=== PATIENT | female | born 1960 | race Caucasian/White ===

== ENCOUNTER 2016-10-23 12:20 | Emergency (ER) | payer OTHER ==
[~2016-10-23] VITALS: Ht 152.4 cm; Wt 132.0 kg
[~2016-10-23 12:20] MED LIST: FLUO20TA27 PO; HYDR25TA6 PO; TRAZ50TA18 PO
[2016-10-23 12:22] VITALS: Ht 152.4 cm; Wt 132.0 kg
[2016-10-23] MEDS ORDERED: KETOROLAC 30 MG INJ IM STA (13:10)
--- NOTE | 2016-10-23 13:48 | RADRPT ---
PROCEDURE: XR left shoulder. CLINICAL INDICATION: Pain TECHNIQUE: Axillary, Internal and external rotation views of the left shoulder were performed. COMPARISON: None. FINDINGS: There are mild degenerative changes involving the acromioclavicular joint with mild joint space narr owing and subchondral sclerosis. There is normal osseous mineralization and alignment. There is a focal linear calcification adjacent to the superior outer aspect of the humeral head. A s mall avulsion fracture is not excluded. RPTAT: AA IMPRESSION: Mild degenerative changes of the acromioclavicular joint. Focal linear calcification near the superior outer aspect of the right humeral head. This may repre sent an focal area of calcific tendonitis. However a small nondisplaced fracture is not excluded. Follow-up CT is recommended. .Cash Prakash MD, Date Time Electronically viewed and signed by .Cash Prakash MD, on 10/23/2016 13:48 .S/
[2016-10-23] MEDS ORDERED: BUPIVACAINE 0.5% 30 ML VIAL INJ ONE (14:30)
[2016-10-23] MEDS ORDERED: METHYLPREDNISOLONE 40 MG INJ IM ONE (14:30)
[2016-10-23] MEDS ORDERED: NAPR-260 PO (14:56)
--- NOTE | 2016-10-23 15:02 | ERD ---
ER Documentation Chief Complaint Date/Time DATE: 10/23/16 TIME: 14:59 Chief Complaint Complains of right shoulder pain since last night HPI This 56-year-old female who was going down some stairs holding onto a guardrail when she jammed her right shoulder. This is's onset last night. She is complaining pain in the posterior right shoulder. No dislocation there is pain with range of motion. No fall. Pain is sharp worse with movement better with rest. No pain down the arm or radicular pain no pain in the neck or head ROS All systems reviewed and are negative except as per history of present illness. Medications Home Meds Active Scripts Naproxen* (Naprosyn*) 500 Mg Tablet, 500 MG PO BID Y for PAIN AND/OR INFLAMMATION, #30 TAB Prov:ROSSY CARSON PA-C 10/23/16 Reported Medications Trazodone Hcl* (Trazodone Hcl*) 50 Mg Tablet, PO HS PRN 03/11/11 Hydrochlorothiazide (Hydrochlorothiazide) 25 Mg Tablet, PO DAILY 03/11/11 Fluoxetine Hcl (Fluoxetine Hcl) 20 Mg Tablet, PO HS 03/11/11 Allergies Allergies: Coded Allergies: No Known Drug Allergies (Verified Allergy, Unknown, 10/23/16) PMhx/Soc History of Surgery: Yes (GALLBLADDER) Anesthesia Reaction: No Hx Neurological Disorder: No Hx Respiratory Disorders: No Hx Cardiac Disorders: Yes (HTN) Hx Psychiatric Problems: Yes (DEPRESSION) Hx Miscellaneous Medical Probl: No Hx Alcohol Use: No Hx Substance Use: No Hx Tobacco Use: Yes Smoking Status: Never smoker FmHx Family History: No coronary disease Physical Exam Vitals Vital Signs Date Time Temp Pulse Resp B/P Pulse Ox O2 Delivery O2 Flow Rate FiO2 10/23/16 12:22 97.8 82 20 141/82 98 Physical Exam Const: Well-developed, well-nourished Head: Atraumatic, normocephalic Eyes: Normal Conjunctiva, PERRLA, EOMI, normal sclera, no nystagmus ENT: Normal External Ears, Nose and Mouth, moist mucus membranes. Neck: Full range of motion. No meningismus, no lymphadenopathy. Resp: Clear to auscultation bilaterally, no wheezing, rhonchi, rales Cardio: Regular rate and rhythm, no murmurs, S1 S2 present Abd: Soft, non tender x 4, non distended. Normal bowel sounds, no guarding or rebound, no pulsitile abdominal masses or bruits Skin: No petechiae or rashes, no ecchymosis , no maculopapular rash Back: No midline or flank tenderness Ext: No cyanosis, or edema, FROM x 4, normal inspection, neurovascularly intact x 4, decreased range of motion to right shoulder due to pain his pain at the posterior aspect of the shoulder at the AC joint also. Limited abduction and flexion Neur: Awake and alert, STR 5/5 x 4, sensation intact x 4, no focal findings, cerebellum intact Psych: Normal Mood and Affect Results 24 hrs Current Medications Medications (Trade) Dose Ordered Sig/Fabricio Route PRN Reason Start Time Stop Time Status Last Admin Dose Admin Ketorolac Tromethamine (Toradol) 30 mg ONCE STAT IM 10/23/16 13:10 10/23/16 13:13 DC 10/23/16 13:22 Methylprednisolone Sodium Succinate (Solu-Medrol) 40 mg ONCE ONCE IM 10/23/16 14:30 10/23/16 14:31 DC Bupivacaine HCl (Marcaine 0.5%) 4 ml ONCE ONCE INJ 10/23/16 14:30 10/23/16 14:31 DC Procedures/MDM PROCEDURE: XR left shoulder. CLINICAL INDICATION: Pain TECHNIQUE: Axillary, Internal and external rotation views of the left shoulder were performed. COMPARISON: None. FINDINGS: There are mild degenerative changes involving the acromioclavicular joint with mild joint space narrowing and subchondral sclerosis. There is normal osseous mineralization and alignment. There is a focal linear calcification adjacent to the superior outer aspect of the humeral head. A small avulsion fracture is not excluded. RPTAT: AA IMPRESSION: Mild degenerative changes of the acromioclavicular joint. Focal linear calcification near the superior outer aspect of the right humeral head. This may represent an focal area of calcific tendonitis. However a small nondisplaced fracture is not excluded. Follow-up CT is recommended. .Cash Prakash MD, MD Date Time Electronically viewed and signed by .Cash Prakash MD, on 10/23/2016 13: 48 .S/ CC: ROSSY CARSON PA-C Procedure: By me: Right shoulder injection Skin was prepped by me using Betadine and aseptic technique An injection into the right shoulder with a 27-gauge 1-1/2 inch needle with 1 cc of Solu-Medrol 40 mg per ml with 3 mL's of bupivacaine 0.5% Injected into the right shoulder joint. No blood upon withdraw of syringe once in the joint space Patient tolerated the procedure well Departure Diagnosis: Primary Impression: Shoulder pain Laterality: right Chronicity: acute Qualified Code: M25.511 - Acute pain of right shoulder Condition: Stable Patient Instructions: Shoulder Pain (Uncertain Cause) Referrals: [facility] Urgent Care 7 a.m.- 11 p.m. Every Day of the Week NO APPOINTMENT OR AUTHORIZATION NEEDED [facility] Hours: Mon-Fri 9:00 AM - 5:00 PM Additional Instructions: Llame al doctor JAZ y anastacia gopal GRISEL PARA DENTRO DE 1-2 SALINAS.Dgale a la secretaria que nosotros le instruimos hacer esta grisel.Avise o llame si william condicin se empeora antes de la grisel. Regresa aqui si peor o no mejor. ORQUIDEA GLORIA DO Oct 23, 2016 15:02
[2016-10-23 15:07] VITALS: BP 133/82; PULSE 79; RESP 18; TEMP 98.4
== END 2016-10-23 15:08 | disposition home or self-care (01) ==
LOC: FTE 12:20
DX: M25.511 Pain in right shoulder (principal); I10 Essential (primary) hypertension
CPT/HCPCS: 73030; 96372; J1885; J2920; Z7502; Z7610

== ENCOUNTER 2017-06-15 06:44 | Day surgery (SDC) | payer OTHER ==
[~2017-06-15] VITALS: Ht 157.5 cm; Wt 136.0 kg
[2017-06-15] VITALS (22 sets, daily range): BP systolic 104–181; BP diastolic 55–84; PULSE 58–83; RESP 12–23; Ht 157.5 cm; Wt 136.0 kg
[~2017-06-15 06:44] MED LIST changes: +NAPR-260 PO
[2017-06-15] MEDS ORDERED: ASPI-664 PO (07:13)
[2017-06-15] MEDS ORDERED: TOPI25CA PO (07:14)
[2017-06-15] MEDS ORDERED: METO-335 PO (07:15)
[2017-06-15] MEDS ORDERED: NIT4 SL (07:15)
[2017-06-15] MEDS ORDERED: LEVO50TA71 PO (07:15)
[2017-06-15 07:35] LABS: BASOPHILS % 0.7 % (0.0-2.0); EOSINOPHILS # 0.1 10^3/ul (0.0-0.5); EOSINOPHILS % 2.2 % (0.0-7.0); HEMATOCRIT 41.5 % (37.0-47.0); HEMOGLOBIN 13.8 g/dl (12.0-16.0); LYMPHOCYTES # 1.4 10^3/ul (0.8-2.9); LYMPHOCYTES % 30.5 % (15.0-51.0); MEAN CORPUSCULAR HEMOGLOBIN 30.8 pg (29.0-33.0); MEAN CORPUSCULAR HGB CONC 33.3 g/dl (32.0-37.0); MEAN CORPUSCULAR VOLUME 92.6 fl (82.0-101.0); MEAN PLATELET VOLUME 10.3 fl (7.4-10.4); MONOCYTE # 0.4 10^3/ul (0.3-0.9); MONOCYTES % 9.2 % (0.0-11.0); NEUTROPHIL # 2.6 10^3/ul (1.6-7.5); NEUTROPHILS % 57.2 % (39.0-77.0); PLATELET COUNT 299 10^3/UL (140-415); RED BLOOD COUNT 4.48 10^6/ul (4.20-5.40); WHITE BLOOD COUNT 4.6 10^3/ul (4.8-10.8)
[2017-06-15 07:46] LABS: INR 1.02; PROTIME 13.4 Sec (12.2-14.2)
[2017-06-15 07:47] LABS: PARTIAL THROMBOPLASTIN TIME 33.8 Sec (25.0-35.0)
[2017-06-15 07:49] LABS: CHOL/HDL RATIO 3.6 RATIO
[2017-06-15 07:53] LABS: CALCIUM 9.5 mg/dl (8.4-10.2); CREATININE 0.79 mg/dl (0.44-1.00); POTASSIUM 4.2 mmol/L (3.5-5.1)
--- NOTE | 2017-06-15 07:56 | RADRPT ---
PROCEDURE: XR Chest. TECHNIQUE: Single frontal radiograph. CLINICAL INDICATION: Preoperative. COMPARISON: None. FINDINGS: Bibasilar atelectasis without focal consolidation, pneumothorax, or pleural effusions. The cardiac s ilhouette is likely magnified in the context of low lung volumes. IMPRESSION: No acute cardiopulmonary process. RPTAT: EE .James Diez MD, MD Date Time Electronically viewed and signed by .James Diez MD, MD on 06/15/2017 08:01 .C/
[2017-06-15] MEDS ORDERED: DIPHENHYDRAMINE 50 MG CAP PO ONE (08:00)
[2017-06-15] MEDS ORDERED: FAMOTIDINE 20 MG TAB PO ONE (08:00)
[2017-06-15] MEDS ORDERED: SOD CHLORIDE 0.45% 1,000 ML IV ONE (08:00)
[2017-06-15] MEDS ORDERED: DIAZEPAM 5 MG TAB PO ONE (08:00)
[2017-06-15] MEDS ORDERED: HEPARIN 1000 UNITS/ML 10 ML INJ ONE (09:45)
[2017-06-15] MEDS ORDERED: MIDAZOLAM 1 MG/ML 2 ML INJ ONE (09:45)
[2017-06-15] MEDS ORDERED: FENTAnyl 50 MCG/ML VIAL ONE (09:45)
[2017-06-15] MEDS ORDERED: IODIXANOL LOCM 100 ML BTL ONE (09:45)
[2017-06-15] MEDS ORDERED: VERAPAMIL 5 MG INJ ONE (09:45)
[2017-06-15] MEDS ORDERED: LIDOCAINE 1% (MDV) 20 ML INJ ONE (09:45)
[2017-06-15] MEDS ORDERED: NITROGLYCERIN (IC) 100 MCG/ML INJ ONE (09:46)
[2017-06-15] MEDS ORDERED: SOD CHLORIDE 0.9% 1,000 ML IV SCH (10:50)
--- NOTE | 2017-06-15 10:50 | SIPON ---
Date/Time of Note Date/Time of Note DATE: 06/15/17 TIME: 10:49 Operative Report Preoperative Diagnosis 1.Chest pin 2. Abnl mpi Postoperative Diagnosis 1.non-obstructive cad Operation/Procedure Performed 1.[facility] Surgeon see signature line nurse first assist 1.Afshan Anesthesia: moderate sedation Estimated blood loss: minimal Transfusion Required none Specimen NA Grafts/Implants none Complications none RONY LONGO Jun 15, 2017 10:50
[2017-06-15] MEDS ORDERED: morphine 2 MG INJ IV PRN (11:00)
[2017-06-15] MEDS ORDERED: ACETAMINOPHEN 325 MG TAB PO PRN (11:00)
--- NOTE | 2017-06-15 12:00 | CARRPT ---
DATE OF PROCEDURE: 06/15/2017 TYPE OF PROCEDURE: 1. Left heart catheterization. 2. Coronary angiography. 3. Measurement of left ventricular end diastolic pressure. ATTENDING PHYSICIAN: Rony Son MD REFERRING PHYSICIAN: Dr. Danie Finley INDICATIONS: Chest pain, assess for ischemia with abnormal cardiac stress test. TYPE OF ANESTHESIA: Conscious local. BRIEF HISTORY: Ms. Sanon is a 57-year-old female with history of hypertension and dyslipidemia who initially presented with complaints of substernal chest pain. The patient subsequently had a ca rdiac stress test revealing positive inferolateral ischemia. Given these findings, the patient refe rred for and presents today in order to undergo left heart catheterization to assess for the possibi lity of significant obstructive coronary artery disease lending to symptoms of chest pain and subseq uent positive stress test findings. DESCRIPTION OF PROCEDURE: After informed consent was obtained, the patient was brought to the [facility] cardiac catheterization lab where right radial area was prepped and draped i n usual sterile fashion. Lidocaine 2% was infiltrated into the right radial area in order to achiev e adequate local anesthesia. Using modified Seldinger technique, the patient's right radial artery was cannulated and a 6[place] arterial sheath was placed. A 6[place] JL3.5 catheter was used to can nulate the left main coronary ostium. With contrast injection, multiple views of the left coronary system were obtained. A JL3.5 guidewire and a JR4 was used to cannulate the right coronary arterial ostium. With contrast injection, multiple views of the right coronary system were obtained. JR4 w as removed over a guidewire. After being used to cross LV and measure LVEDP pull back across the ao rtic valve to assess for significant gradient, which there was not. Subsequently, at this time, the patient's sheath was removed. TR band was applied. There were no noted complications. FINDINGS: Coronary angiography. Left main short 4 mm, no significant stenoses. Circumflex proxima lly is a 3.3 mm vessel which has also 20% stenosis. The remainder of the circumflex is free of sign ificant focal stenoses. There is a mid branching obtuse marginal 3 mm vessel with no significant fo tiffany stenoses. There is a left side dominant vessel that gives off a 2 mm PDA and posterolateral bra nch, each with no significant focal stenoses. The LAD proximally is a 3 mm vessel in its midportion , has a 20% to 30% stenosis. Remainder of LAD is free from focal stenoses and does just around the apex. There are 2 mid branching diagonals, 2 mm vessels, with no significant focal stenoses. The r ight coronary artery proximally is a 3 mm vessel and appears to end in a very faint small posterolat eral branch, making it a codominant vessel, sub 1.5 mm vessel and a 2 mm posterolateral branch with no significant focal stenoses. Measurement of left ventricular end-diastolic pressure was 16 and 18, no significant aortic stenosis by gradient. TOTAL FLUOROSCOPY TIME: 6 minutes. TOTAL CONTRAST: 60 mL. IMPRESSION: 1. Very mild nonobstructive coronary artery disease. 2. High normal left heart filling pressures. 3. No significant aortic stenosis by gradient. RECOMMENDATIONS: In light of procedure findings would: 1. Maximize medical management. 2. Aggressive risk factor reduction. 3. The patient to be readmitted to same day surgery center for post-cath observation and continued management of presenting symptoms with probable discharge later this afternoon. 4. The patient is scheduled for followup appointment in our office to take place Monday at 1 p.m. a t which time we will assure the patient had no post-catheterization complications and discuss result s of procedure with the patient. Dictated By: RONY العلي/DEVIN Conf#: [id number] DID#: [id number] CC: DANIE FINLEY MD;*EndCC*
--- NOTE | 2017-06-16 13:14 | RADRPT ---
Vent Rate: 74 bpm RR Interval: 0 msec [place] Interval: 174 msec QRS Duration: 88 msec QT Interval: 404 msec QTC Interval: 448 msec P-R-T [place]: 61 - 48 - 38 degrees Normal sinus rhythm Normal ECG Electronically Signed By: Jr Taylor [id number]
== END 2017-06-15 16:50 | disposition home or self-care (01) ==
LOC: SDS 06:44
PROVIDERS: ATTEND Internal Medicine
DX: R07.9 Chest pain, unspecified (principal); I10 Essential (primary) hypertension
CPT/HCPCS: 71010; 80048; 80061; 85025; 85610; 85730; 93005; 93458; C1887; J1644; J2250; J3010; Q9967; Z7610